=== PATIENT | male | born 1965 | race Caucasian/White ===

== ENCOUNTER 2015-12-17 08:10 | Outpatient (RCR) | END 2016-03-16 | LOC: WSOH | DX: Z02.89 Encounter for other administrative examinations (principal) ==

== ENCOUNTER 2019-02-05 16:13 | Outpatient (RCR) | payer OTHER | END 2019-04-19 15:10 | disposition home or self-care (01) | LOC: WSC 16:13 | DX: M54.41 Lumbago with sciatica, right side (principal) ==